=== PATIENT | female | born 1950 | race Caucasian/White ===

== ENCOUNTER 2020-03-16 15:00 | Inpatient (IN) | payer OTHER ==
[~2020-03-16] VITALS: Ht 152.4 cm; Wt 37.0 kg
--- NOTE | ~2020-03-16 | H ---
[facility] [place] [address] HISTORY AND PHYSICAL Name: JOE DEL ROSARIO Room #: 514-P ADM IN M.R.#: [id number] Admission: 03/16/20 Attend Phys: Gurpreet Padilla MD Discharge: Date of : 46 Report #: [id number] THIS REPORT FOR: cc: Jeannette Sandoval,Gurpreet Shoemaker MD ~ CC: Jeannette Padilla DATE OF SERVICE: 03/16/2020 HISTORY AND PHYSICAL AND POST-ADMISSION PHYSICIAN EVALUATION HISTORY OF PRESENT ILLNESS: The patient is a 69-year-old white female with a history of severe multi-joint rheumatoid arthritis, who had a left displaced femoral neck fracture approximately 3 weeks prior. She underwent right hip hemiarthroplasty at that time. She underwent some rehabilitation, was able to be discharged back to her assisted living facility. She apparently was crossing her legs. Denied any fall and ended up dislocating her hemiarthroplasty. She was readmitted to [facility] and underwent closed reduction. She has been placed in a right hip abductor brace. She has been admitted now to [facility] for acute in-hospital inpatient rehabilitation. PAST MEDICAL HISTORY: Includes multi-joint severe rheumatoid arthritis, history of fibromyalgia and osteoporosis. MEDICATIONS: Please see the full medication listing. She notes she has been on the Eliquis since her hip surgery. She is on chronic prednisone usage. They actually changed her over to aspirin 81 mg, which she is on now. SOCIAL HISTORY: Lives in assisted living [facility]. She notes that she was a premorbid walker ambulator. She needed assistance with bathing. She indicates she does not have a primary care physician. Diet is regular. REVIEW OF SYSTEMS: No complaints of chest pain, shortness of breath or abdominal discomfort. She has chronic arthritic complaints with her rheumatoid arthritis. PHYSICAL EXAMINATION: GENERAL: The patient is a small statured, thin 69-year-old female, somewhat frail in appearance, no obvious distress. She is alert, oriented. VITAL SIGNS: Vital are being obtained. HEENT: Appeared to be benign. NEUROLOGIC: Facies are symmetric. She knows the place, year, date, day of the week. CHEST: Sounded clear to auscultation. [address] [address] HISTORY AND PHYSICAL Name: JOE DEL ROSARIO Room #: 514-P [facility] IN M.R.#: [id number] Admission: 03/16/20 Attend Phys: Gurpreet Padilla MD Discharge: Date of : 46 Report #: [id number] CARDIOVASCULAR: Regular rate and rhythm. ABDOMEN: Bowel sounds positive, nontender. GENITOURINARY AND RECTAL: Deferred. EXTREMITIES: She has significant bilateral hand chronic arthritic changes with ulnar deviation and some decreased accounting manager. Strength is probably a grade 4-/5. In her lower extremities, she has the large abductor brace in place over that right hip and across her pelvis. There is no focal calf swelling. She has functional range of motion of both distal lower extremities. She does have some bluish discoloration of both feet, which she notes is chronic and happens when her feet get cold. She has excellent capillary refill and I felt I could feel her pulses, dorsalis pedis, posterior tibialis. No complaints of pain with strength of the distal lower extremities, probably a grade 4-/5. Left lower extremity strength is probably a grade 4-/5. Functionally, she has been needing assistance with basic transfers. ASSESSMENT: A 69-year-old white female with the following problems: 1. Right hip prosthesis displacement, status post closed reduction. 2. Right femur fracture, status post right hip hemiarthroplasty. 3. Severe premorbid rheumatoid arthritis. 4. Intractable pain. 5. Deep venous thrombosis prophylaxis. She is currently on aspirin and utilizing SCDs. 6. Vitamin D deficiency. 7. History of fibromyalgia. PLAN: The patient is admitted for acute in-hospital inpatient rehabilitation. From a postadmission physician evaluation perspective, there are no relevant changes since the preadmission screening. Please see the above review of prior and current medical and functional conditions and comorbidities. Please see the patient's previous and current functional status. As far as risk of complication, she does have the above noted medical comorbidities. Measurable functional goals would be for the patient to become modified independent with transfers, mobility and ADLs, so she can hopefully return back to her prior living situation. She does live in an assisted living facility and will likely need more assistance initially. She is allowed weightbearing as tolerated on that right lower extremity and will be continuing with the posterior hip precautions. She has the right abductor brace set to 60 degrees flexion, 15 degrees abduction. Prognosis is reasonably good with estimated length of stay probably at least 7-10 days. Potential barriers would include her multiple medical comorbidities and decreased functional status. The patient meets diagnostic criteria for an acute in-hospital inpatient rehabilitation stay. She meets the medical necessity criteria. She does have [address] [address] HISTORY AND PHYSICAL Name: JOE DEL ROSARIO Room #: 514-P ADM IN M.R.#: [id number] Admission: 03/16/20 Attend Phys: Gurpreet Padilla MD Discharge: Date of : 46 Report #: [id number] the tolerance for therapies and has appropriate discharge goals back to the home setting. By: [id number] 1731 Gurpreet Padilla MD /nt
--- NOTE | ~2020-03-16 | PLAN ---
[facility] [place] [address] REHAB UNIT PLAN OF CARE Name: JOE DEL ROSARIO Room #: 514-P ADM IN M.R.#: [id number] Admission: 03/16/20 Attend Phys: Gurpreet Padilla MD Discharge: Date of : 46 Report #: [id number] THIS REPORT FOR: //name// CC: Jeannette Padilla DATE OF SERVICE: 03/19/2020 PROGRESS NOTE AND OVERALL PLAN OF CARE SUBJECTIVE: [place] Nena del rosario is seen back today in followup. She is in no distress. Last recorded temperature is 98.2, pulse 74, respirations 20, and blood pressure 138/73. No calf swelling. She has the abductor triangle brace in place. She is working in therapies with transfers, mod assist. Gait min assist 20 feet with a front-wheeled walker. In occupational therapy, lower body dressing is max assist. Speech therapy is also involved, noting moderate cognitive deficits with severe memory deficits. ASSESSMENT: 1. Right hip prosthesis displacement, status post closed reduction. 2. Right femur fracture, status post right hip hemiarthroplasty. 3. Severe premorbid rheumatoid arthritis. 4. Intractable pain. 5. Deep venous thrombosis prophylaxis. She is on aspirin and SCDs as per transfer from [place]. 6. Vitamin D deficiency. 7. History of fibromyalgia. PLAN: The overall plan of care is based on the preadmission screen, post-admission physician evaluation and information garnered from therapy assessments. 1. Estimated length of stay is probably around 7-10 days, likely longer if warranted. 2. Medical prognosis is reasonably good. 3. Anticipated interventions include the interdisciplinary acute inpatient rehabilitation program. 4. Anticipated functional outcomes would be for the patient to become modified independent or at least to improve as far as basic mobility and ADLs to improve cognition overall, so she can hopefully return back to the home setting. 5. Discharge destination would be back to the home setting. She does live in an assisted living facility. 6. Expected therapy by discipline includes PT, OT and speech 1 hour per day [address] [address] REHAB UNIT PLAN OF CARE Name: MARTY DEL ROSARIOJAMESON DODSON Room #: 514-P [facility] IN M.R.#: [id number] Admission: 03/16/20 Attend Phys: Gurpreet Padilla MD Discharge: Date of : 46 Report #: [id number] each five days a week throughout the duration of the acute inpatient rehabilitation stay. By: [id number] 1740 Gurpreet Padilla MD /nt
[~2020-03-16 15:00] MED LIST: ACETAMINOPHEN500 M1 PO; ACYCLOVIR 800800 MG PO; BAYER CHEWABLE81 MG PO; BENADRYL25 MG PO; BIOFREEZE118 ML TOP; COLACE100 MG PO; DULCOLAX STOOL100 M1 PO; ELIQUIS2.5 MG PO; EMBREL; FAMOTIDINE 20 M20 MG PO; FLORANEX TABLE1 EACH PO; FLORASTOR250 MG PO; IBUPROFEN 800800 M1 PO; IRON325 PO; LEVAQUIN 750 M750 MG PO; METAMUCIL1 EAC1 PO; METHOTREXATE 22.5 M1 PO; MILK OF MA400 MG/5 M PO; MIRALAX17 GM PO; NAPROSYN500 M1 PO; NAPROXEN250 MG PO; OXYCODONE HCL10 MG PO; OXYCODONE HCL15 MG PO; PREDNISONE 5 MG5 M1 PO; SENEXON-S 50-81 EACH PO; TRAMADOL 50 MG50 MG PO; VITAMIN D21250 MC1 PO
[2020-03-16 16:20] VITALS: BP 139/79
--- NOTE | 2020-03-16 17:27 | NUR ---
PT ARRIVED AT 1615 FROM [facility]. VITALS STABLE. PT DENIES PAIN. ALERT AND ORIENTED*4 BUT FORGETFUL. ABD BRACE IN PLACE ON RIGHT HIP. HIP DRESSING DRY AND INTACT. TIJERINA IN INTACT AND PATENT, URINE IS LIGHT YELLOW AND CLEAR. PT EATING POORLY, ATE 50% OF HER DINNER. UP WITH 1 MOD ASSIST, PIVOT TRANSFER AND TOLERATED WELL. CYANOTIC FEET AND TOES (PT STATED THAT SHE GETS CYANOTIC WHEN COLD). Q1H VISUAL CHECKS. CALL LIGHT WITHIN REACH. FALL PRECAUTIONS IN PLACE
[2020-03-16 19:38] VITALS: BP 156/73
--- NOTE | 2020-03-17 03:33 | NUR ---
ASSUMED CARE AT APPROX 1900 EVENING 03/16. PT ALERT AND ORIENTED X4, PLEASANT AND COOPERATIVE. PT LYING IN BED WITH ABDUCTOR PILLOW IN BETWEEN LEGS. PT TOOK HS MEDS WITH WATER TOLERATING WELL. TIJERINA TO DD WITH YELLOW URINE TO BAG. PT APPEARS TO BE SLEEPING SOUNDLY WITH HOURLY ROUNDING. BED ALARM ON AND CALL LIGHT IN REACH. WILL CONTINUE TO MONITOR.
[2020-03-17 05:57] LABS: HEMATOCRIT 30.8 % (37.0-47.0); HEMOGLOBIN 9.8 gm/dL (12.0-15.0); MCH 25.6 pg (26.0-34.0); MCV 79.9 fL (80.0-100.0); RBC 3.85 mil/uL (4.20-5.00); RDW 25.4 % (10.5-14.5); WBC 6.4 thou/uL (4.0-11.0)
[2020-03-17 06:21] LABS: CALCIUM 9.5 mg/dL (8.5-10.1)
[2020-03-17 08:00] VITALS: BP 143/75
--- NOTE | 2020-03-17 11:26 | NUR ---
ASSUMED CARE AT 0700. PATIENT IS ALERT AND ORIENTED X4. PATIENT QUIROGA'S, LICENSED STAFF MFT ARE EQUAL. LUNGS ARE CLEAR. ABD IS SOFT WITH BSX.4 PATIENT HAS ABDUCTOR PILLOW IN PLACE WHEN IN BED, AND BRACE TO HER RIGHT HIP WHEN UP OR AMBULATING. UP IN THE RECLINER FOR MEALS. FALL AND SAFETY PROTOCOLS IN PLACE. C/O PAIN IN HER RIGHT HIP. MEDICATED WITH PRN PAIN MEDS. PATIENT CONTINUES TO PROGRESS SLOWLY TOWARDS D/C GOALS. P.T. WANTS LPN RN CALLED ON THURSDAY TO COME OUT AND ADJUST THE BRACE. WILL CONTINUE TO MONITER.
[2020-03-17 20:40] VITALS: BP 162/76
--- NOTE | 2020-03-18 01:34 | NUR ---
ASSUMED CARE AT APPROX 1900 EVENING 03/17. PT LYING IN BED ALERT AND ORIENTED X4, APPROPRIATE AND COOPERATIVE. ABDUCTOR PILLOW IN PLACE IN BED. PT SOMEWHAT RESTLESS C/O ITCHING AND PAIN. MEDS GIVEN FOR BOTH. PT TOOK MEDS WITH WATER TOLERATING WELL. TIJERINA TO DD WITH CLEAR, YELLOW URINE TO BAG. PT APPEARS TO BE SLEEPING SOUNDLY AT PRESENT. BED ALARM ON AND CALL LIGHT IN REACH. WILL CONTINUE TO MONITOR.
[2020-03-18 08:25] VITALS: BP 149/63
--- NOTE | 2020-03-18 16:57 | NUR ---
ASSUMED CARE AT 0700, PT A&O X 4 NO ACUTE CHANGES NOTED. VSS, O2 ON RA. PT DENIES ANY PAON OR DISCOMFORT, RLE IMMOBILIZED, APPARATUS IN PLACE. MEDS GIVEN PER ORDERS, DIDN'T EAT MUCH OF MEALS TODAY, STATED THAT SHE WASNT FEELING HUNGRY, REFUSED ENSURE SUPPLEMENT. TIJERINA IN PLACE DRAINING YELLOW URINE. NO BM TODAY.PT ON TORITO MIRALAX. PT RESTING IN BED, CALL LIGHT WITHIN REACH, WILL CONTINUE TO MONITOR PER POC.
[2020-03-18 19:25] VITALS: BP 138/73
--- NOTE | 2020-03-18 23:37 | NUR ---
PT ASSESSMENT COMPLETED AND VSS. MEDS GIVEN ORDERED AND WELL TOLERLATED. FALL PRECAUTIONS IN PLACE. ABDUCTOR PILLOW WORKING WELL. ASST WITH FREQUENT REPOSITION FOR COMFORT. TIJERINA DRAINING MODERATE AMOUNT OF YELLOW URINE. WILL CONTINUE TO MONITOR FREQUENTLY.
[2020-03-19 08:10] VITALS: BP 144/89
--- NOTE | 2020-03-19 13:16 | NUR ---
Nutrition: REC liberalize diet to regular due to inadequate intake.
--- NOTE | 2020-03-19 14:07 | NUR ---
chart review. cm visited with pt via phone call, she was able to make her needs know. intro to cm, dcp and team meeting. pat reported " live in resident care facility at [facility]. all on 1 level. no stairs or elevators. walker with seat but not sure if like the way i feel when sitting down on it, have call light. they give meals and do the laundry. casper help with showers. no home health in past. had rehab at [facility] before"/steffany. will cont following as needed for dc needs.
--- NOTE | 2020-03-19 19:26 | NUR ---
ASSUMED CARE OF PT AT 0700. PT IS A&OX4 AND VITAL SIGNS ARE STABLE. PT REPORTED PAIN, MANAGED WITH PO PAIN MEDICATIONS. PARTICIPATED IN SCHEDULED THERAPIES. TIJERINA CATHETER REMOVED. PT REPORTED BURING WITH URINATION, OBTAINED ORDER FOR UA, NO SAMPLE OBTAINED AT THIS TIME. LOW AIRLOSS MATTRESS ORDERED DUE TO RISK FOR SKIN BREAKDOWN. FALL PRECAUTIONS IN PLACE AND NURSING WILL CONTINUE TO MONITOR.
[2020-03-19 20:34] VITALS: BP 158/78
--- NOTE | 2020-03-20 01:44 | NUR ---
PT ASSESSMENT COMPLETED AND VSS. MEDS GIVEN ORDERED AND WELL TOLERATED. FALL PRECAUTIONS IN PLACE. ABDUCTOR PILLOW IN PLACE. URINE SENT TO THE LAB FOR TESTING - PENDING. INC OF LARGE AMOUNTS OF URINE. ROBB CARE PROVIDED. PRN PAIN AND SLEEP MEDICATION HELPFUL. ASST WITH REPOSITION FOR COMFORT. SLEEPING WELL.
[2020-03-20 02:29] LABS: URINE BILIRUBIN NEGATIVE (Negative); URINE BLOOD 3+ (Negative); URINE CLARITY CLEAR; URINE COLOR YELLOW; URINE GLUCOSE-RANDOM* NEGATIVE (Negative); URINE KETONES NEGATIVE (Negative); URINE PROTEIN (DIPSTICK) NEGATIVE (Negative); URINE UROBILINOGEN 0.2 E.U./dl (0.2-1.0)
[2020-03-20 02:30] LABS: URINE LEUKOCYTES-REFLEX 3+ (Negative); URINE NITRITE-REFLEX POSITIVE (Negative)
[2020-03-20 02:35] LABS: BACTERIA-REFLEX 1-9 Few /HPF (None Seen); CASTS None Seen /LPF (None Seen); CRYSTALS None Seen /LPF (None Seen); MUCUS 0-3 Light strn/LPF (None Seen); SQUAMOUS 0-3 Few /LPF (0-3); URINE RBC 3-10 Few /HPF (0-2); URINE WBC-REFLEX >25 Many /HPF (0-5); WBC CLUMPS Few (None Seen)
[2020-03-20 07:50] VITALS: BP 138/78
--- NOTE | 2020-03-20 13:09 | NUR ---
team meeting, recommendation: check and see how much assistance her home could provide for her at dc, rt brace for leg, and adl's ext. re team with anticpated 03/29 vs dcp option if [facility] meet her needs.
[2020-03-20 19:35] VITALS: BP 133/60
--- NOTE | 2020-03-20 20:11 | NUR ---
ASSUMED CARE OF PT AT 0700. PT IS A&OX4 AND VITAL SIGNS ARE STABLE. PT REPORTED PAIN TO RIGHT HIP AND WRIST, PAIN MANAGED WITH PO MEDICAITONS, XRAY ORDERED AND RESULTS DISCUSSED WITH PROVIDER. PT PARTICIPATED IN SCHEDULED THERAPIES. HEMORRHOIDS NOTED ON ASSESSMENT, ORDER FOR OINTMENT OBTAINED AND APPLILED PER ORDERS. PT REEDUCATED ABOUT HIP PRECAUTIONS AND ENCOURAGED TO MAINTAIN PRECAUTIONS. FALL PRECAUTIONS IN PLACE AND NURSING WILL CONTINUE TO MONITOR.
--- NOTE | 2020-03-21 03:53 | NUR ---
APPRECIATES TURN TO SIDE WITH PILLOWCASE BETWEEN HER AND HER ABDUCTOR PILLOW TO MINIMIZE ITCHING. TOLERATED MEDS WITH WATER WITH CIPRO BROKEN IN HALF DUE TO SIZE. APPRECIATES PREPARATION H TO BARELY BULGING HEMMOROIDS. INCONTINENT SO FAR THIS SHIFT
[2020-03-21 08:20] VITALS: BP 145/60
--- NOTE | 2020-03-21 10:06 | NUR ---
Dc c4 planner to fax referrals to [facility] for SNF stay.
--- NOTE | 2020-03-21 15:34 | NUR ---
FAXED REFERRAL TO [facility] SPOKE WITH WERNER IN ADM SHE RECEIVED REFERRAL AND WILL BE ABLE TO ACCEPT AT [place]. FAXED REFERRAL TO [facility] SPOKE WITH DAMARI IN ADM SHE RECEIVED REFERRAL AND WILL REVIEW. DP TO FOLLOW.
--- NOTE | 2020-03-21 16:32 | NUR ---
ASSUMED CARE OF PT AT 0700. PT IS A&OX4 AND VITAL SIGNS ARE STABLE. PT REPORTS PAIN, MANAGED WITH PO MEDICATIONS AND REST. BRACE IN PLACE WHEN OOB. SCHDULED VOIDING ATTEMPTED THIS SHIFT. HIP PRECAUTIONS REINFORCED. PT REPORTED SOME NAUSEA AND GASTRIC UPSET, MANAGED WTIH PO MEDICAITONS. MAG CITRATE ADMINISTERED FOR CONSTIPATION, NO RESULTS AT THIS TIME. FALL PRECAUTIONS IN PLACE. NURSING WILL CONTINUE TO MONITOR.
[2020-03-21 20:00] VITALS: BP 134/52
--- NOTE | 2020-03-22 03:41 | NUR ---
ASSUMED CARE OF PT AT 1900HRS. PT AOX4 BUT FORGETFUL. FALL PRECAUTION IN PLACE. ABDUCTOR PILLOW IN PLACE AND HIP PRECAUTION MAINTAINED. ABX TREATMENT CONTINUED. PT TOOK PILLS WHOLE. PT WAS ABLE TO GET COMFORTABLE AND SLEEP PART OF THE SHIFT. VSS AND NO S/S OF ACUTE DISTRESS. WILL CNTINUE TO MONITOR. .
[2020-03-22 07:45] VITALS: BP 136/71
--- NOTE | 2020-03-22 11:00 | NUR ---
cm notified that [facility] and [facility] ([place]) both able to accept for snf if needed. cm left message with pt daughter sreedhar. will cont following as needed for dc needs.
--- NOTE | 2020-03-22 14:55 | NUR ---
ASSUMED CARES AT 0700. PT AWAKE, ALERT AND ORIENTED*4 BUT FORGETFUL. DENIES PAIN. VITALS STABLE. HIP PRECAUTIONS MAINTAINED ( ABDUCTOR PILLOW IN PLACE WHEN IN BED, BRACE ON WHEN AWAKE). PREP-H APPLIED TO HEMORRHOOIDS. ABDOMEN SOFT AND FLAT WITH ACTIVE BS, DUCOLAX PILLS AND MIRALAX ADMINISTERED, LAST REPORTED BM 03/20. REPOSITIONED Q2H. UP WITH 1 MIN ASSIST, GB AND WALKER AND TOLERATED WELL. Q1H VISUAL CHECKS. CALL LIGHT WITHIN REACH. FALL PRECAUTIONS IN PLACE
[2020-03-22 19:29] VITALS: BP 126/54
--- NOTE | 2020-03-23 03:29 | NUR ---
INCONTINENT OF URINE AND SMALL AMOUNT DARK STOOL, FEELS IF SHE HAS NO CONTROL OF EITHER RIGHT NOW. TURNED TO SIDE WITH ABDUCTOR PILLOW IN PLACE, FOLLOWING AND DISCUSSING HIP PRECAUTIONS, SPECIFICALLY NOT CROSSING LEGS. LOW AIR LOSS THERAPY PUMP ON.
[2020-03-23 08:00] VITALS: BP 142/68
--- NOTE | 2020-03-23 10:48 | NUR ---
cm called daughter sreedhar [phone], passed on that both facility has accepted pt for snf at dc. " well that is good, 1st will be [facility] and 2nd [facility]. we would like her to go to [facility] will cont following as needed for dc needs.
--- NOTE | 2020-03-23 10:55 | NUR ---
NOTIFIED STEFFI IN ADM AT [facility] THAT PT'S FAMILY CHOSE [facility] FOR SKILLED AT DISCHARGE. DP TO FOLLOW.
--- NOTE | 2020-03-23 14:26 | NUR ---
ASSUMED CARES AT 0700. PT AWAKE, ALERT AND ORIENTED*4 BUT FORGETFUL. C/O GENERALIZED PAIN, ACETAMINOPHEN ADMINISTERED. VITALS STABLE. ABDOMEN SOFT AND FLAT WITH HYPERACTIVE BS. *L LARGE LOOSE INCONTINENT BM THIS AM, HELD LAXATIVES AND STOOL SOFTENORS. PT EATING POORLY, 10% OR LESS PER MEAL, ENCOURAGE AND ASSIST IN ORDERING MEALS. BRACE IN PLACE WITH ACTIVITY. ABDUCTOR PILLOW IN PLACE WHEN IN BED. UP WITH 1 MOD ASSIST, GB AND WALKER AND TOLERATED WELL. Q1H VISUAL CHECKS. CALL LIGHT WITHIN REACH. FALL PRECAUTIONS IN PLACE
[2020-03-23 20:25] VITALS: BP 114/58
--- NOTE | 2020-03-24 01:56 | NUR ---
TO SIDE WITH ABDUCTOR PILLOW IN PLACE, LOW AIR LOSS PUMP THERAPY CONTINUES. USING BEDPAN FOR VOIDS OF 250 AND GREATER, DECLINED LAXATIVES LAST EVENING SINCE SHE HAD HAD A LARGE BM YESTERDAY. PREPARATION H TO RECTUM AFTER USING BEDPAN. PO INTAKE ENCOURAGED
[2020-03-24 05:37] LABS: ABSOLUTE NEUTROPHILS 4.9 thou/uL (1.4-8.2); BASOPHILS 0.9 % (0.0-2.0); EOSINOPHILS 0.6 % (0.0-3.0); HEMATOCRIT 32.5 % (37.0-47.0); HEMOGLOBIN 10.5 gm/dL (12.0-15.0); LYMPHOCYTES 23.7 % (24.0-44.0); MCHC 32.2 g/dL (28.0-37.0); MCV 80.8 fL (80.0-100.0); MONOCYTES 8.4 % (1.0-8.0); PLATELET COUNT 427 thou/uL (150-400); POLYS 66.4 % (36.0-66.0); RBC 4.02 mil/uL (4.20-5.00); RDW 25.7 % (10.5-14.5); WBC 7.3 thou/uL (4.0-11.0)
[2020-03-24 05:43] LABS: CALCIUM 9.3 mg/dL (8.5-10.1); MAGNESIUM 1.9 mg/dL (1.8-2.4); POTASSIUM 3.7 mmol/L (3.5-5.1)
[2020-03-24 08:30] VITALS: BP 142/64
--- NOTE | 2020-03-24 14:17 | NUR ---
ASSUMED CARES AT 0700. PT AWAKE, ALERT AND ORIENTED*4. C/O GENERALISED PAIN, PAIN MEDICATION ADMINISTERED NEEDED. VITALS REMAIN STABLE. HIP PRECAUTIONS MAINTAINED. PT EATING POORLY, EATING 20-30% OF HER MEALS, ASSISTANCE PROVIDED WITH ORDERING MEALS. PT PARTICIPATED IN THERAPY. UP WITH 1 MOD ASSIST, GB AND WALKER. FREQ. VISUAL CHECKS. CALL LIGHT WITHIN REACH. FALL PRECAUTIONS IN PLACE
[2020-03-24 19:16] VITALS: BP 131/55
--- NOTE | 2020-03-25 01:53 | NUR ---
assumed care at approx 1900 evening 03/24. pt lying in bed with head of bed elevated at change of shift. pt alert and oriented x4, appropriate and cooperative. pt with abductor pillow in place in bed. pt reminded to continue to try and keep it in place. pt took hs meds with water tolerating well. pt voiding per bedpan.pt appears to be sleeping soundly with hourly rounding checks. bed alarm on and call light in reach. will continue to monitor.
[2020-03-25 08:15] VITALS: BP 130/62
--- NOTE | 2020-03-25 10:59 | NUR ---
ASSUMED CARE AROUND 0700, PT A&O X 4, NO ACUTE DISTRESS NOTED. VSS, O2 ON RA. PT DENIES ANY PAIN OR DISCOMFORT DURING SHIFT. MEDS GIVEN PER ORDERS, TOLERATED WELL. ABDUCTION PILLOW IN PLACE, HIP PRECAUTIONS CONTINUED. TURNED Q2H. CONTINENT OF B&B, LAST BM 03/23/20, ON TORITO STOOL SOFTENERS. PT RESTING IN BED, CALL LIGHT WITHIN REACH, WILL CONTINUE TO MONITOR PER POC.
[2020-03-25 19:37] VITALS: BP 128/68
--- NOTE | 2020-03-26 03:42 | NUR ---
assumed care at approx 1900 evening 03/25. pt lying in bed at change of shift sleeping. pt slept soundly and hs meds held as pt remained drowsy and sleeping. pt assisted with turning and repositioning waking up slightly during turning. pt voided per bedpan. bed alarm on and call light in reach. will continue to monitor.
[2020-03-26 08:01] VITALS: BP 127/79
--- NOTE | 2020-03-26 13:32 | NUR ---
Nutrition: PO averaging 35% of meals past 4 days with possible severe weight loss over admit. Weights flucutating. RD starting calorie count. RECommend: Order daily weights and consider appetite stimulant.
--- NOTE | 2020-03-26 16:39 | NUR ---
ASSUMED CARE OF PT AT 0700. PT IS A&OX3, FORGETFUL. VITAL SIGNS ARE STABLE. PT REPORTS PAIN IN RIGHT HIP, MANAGED WITH PO MEDICAITONS. TURNED OR REPOSITIONED Q2H, BARRIER CREAM APPLIED NEEDED. HIP PRECAUTIONS IN PLACE. MANAGER ASSURANCE ON UNIT TO ADJUST BRACE. FALL PRECAUTIONS IN PLACE AND NURSING WILL CONTINUE TO MONITOR.
[2020-03-26 20:00] VITALS: BP 131/60
--- NOTE | 2020-03-27 03:26 | NUR ---
ASSUMED CARE AROUND 1900, PT A&0 X 4, NO ACUTE CHANGES OVERNIGHT. VSS, O2 ON RA. PT DENIED ANY PAIN OR DISCOMFORT DURING SHIFT. MEDS GIVEN PER ORDERS, PT REFUSED MIRALAX TONIGHT, EDUCATED PT ON THE IMPORTANCE OF TAKING LAXATIVES/STOOL SOFTNERS DAILY IT AIDS IN PREVENTING CONSTIPATION AND THAT SHE HAS NOT HAD A BM SINCE 03/23/20. PT CONTINUED TO REFUSE AND STATED THAT SHE IS NOT CONSTIPATED AND DOES NOT HAVE DAILY BM'S. PT ALSO STATED THAT THE LAST TIME SHE TOOK MIRALAX SHE HAD SEVERAL BM'S TO THE POINT THAT SHE HAD STOMACH CRAMPS AND SORENESS TO HER RECTUM. EXPLAINED TO PT THAT GOING 3 DAYS WITHOUT A BM IS NOT HEALTHY, AND THAT WHEN THE MIRALAX IS NOT TAKEN DAILY, SHE CAN GET CONSTIPATED WHICH LEADS TO BOWEL DISCOMFORT N/V ETC. PT CONTINUED TO STATE THAT SHE SPEAR NOT NEED THE MIRALAX AND REFUSED TO TAKE IT, AND SHE WILL DISCUSS IT WITH HER PROVIDER IN THE AM. ABDUCTOR PILLOW IN PLACE, HIP PRECAUTIONS CONTINUED, PT TURNED Q2H AND HEELS FLOATED. PT SLEPT SOUNDLY THROUGHOUT SHIFT, CALL LIGHT WITHIN REACH, WILL CONTINUE TO MONITOR PER POC.
[2020-03-27 07:40] VITALS: BP 132/80
--- NOTE | 2020-03-27 11:10 | NUR ---
vendor form and snf list provided to pt and her daughter, given to bedside nurse to place on pt chart.
--- NOTE | 2020-03-27 13:16 | NUR ---
Nutrition: RD completed 24 hr calorie count and pt consumed 990 kcals and 46 gm protein meeting 84% kcal needs, 90% protein needs. Continues to c/o no appetite however met majority of needs this day. Have assisted with meal ordering and food preferences which has likely increased intake. Weight loss a concern and pt unable to take any oral supplements-dislikes all varieties. REC daily weights and consideration of appetite stimulant.
[2020-03-27 19:34] VITALS: BP 150/81
--- NOTE | 2020-03-27 21:04 | NUR ---
ASSUME CARE OF PT AT 0700. PT IS A&OX4 AND VITAL SIGNS ARE STABLE. PT REPORTS PAIN MANAGED IN AM BY PAIN MEDICAITONS AND PT PARTICIPATED IN SCHEDULED THERAPIES. AT APPROXIMATELY 1500 PT REPORTED INCREASED PAIN, PO MEDICATIONS GIVEN PER ORDERS, PT SLEPT FOR APPROXIMATELY 1 HOUR BUT AWOKE REPORTING CONTINUED PAIN THAT "HURT WHEN BREATHING". STAT XRAY ORDERED AND RESULTS INDICATE DISLOCATION, CONSULTED ORTHO, ORDERS TO DISCHARGE TO MED/SURG, SURGERY IN AM, NIGHT NURSE REPORTS NOTIFYING FAMILY.
--- NOTE | 2020-03-27 22:32 | NUR ---
PT C/O SEVERE PAIN IN RIGHT HIP AT START OF SHIFT. RIGHT HIP XRAY RESULTS PENDING. OXYCODONE GIVEN ORDERED. PT CALLING OUT FOR PAIN MEDS ABOUT EVERY 15 MINUTES. XRAY RESULTS NOTED LATER TO SHOW DISLOCATION OF RIGHT HIP. ROLANDA ALONSO NOTIFIED WITH ORDERS RECEIVED. TYLENOL AND LIDODERM PATCH ADMINISTERED ORDERED. DR RONQUILLO NOTIFIED WITH ORDER RECEIVED FOR CONSENT FOR CLOSED REDUCTION OF RIGHT HIP. PT TO BE TRANSFERRED TO [facility]. REPORT CALLED TO [facility] ON . SPOKE WITH RICHARD PT'S DAUGHTER TWICE ABOUT SITUATION. NOEMY IN TO SEE PT AT 2150. PT DISCHARGED TO ROOM 436 AT 2155 VIA BED. PERSONAL BELONGINGS SENT WITH PT.
--- NOTE | 2020-03-28 10:56 | NUR ---
Pt dc'd back to acute care for surgery, closed revision of hip. dc plan is to SNF at [facility] ([place]
== END 2020-03-27 21:55 | DRG 559 ==
PROVIDERS: Nurse Practitioner; Nurse Practitioner Family; ADMIT Physical Medicine & Rehabilitation
DX: T84.020A Dislocation of internal right hip prosthesis, initial encounter (principal); S72.91XA Unspecified fracture of right femur, initial encounter for closed fracture; N39.0 Urinary tract infection, site not specified; E44.0 Moderate protein-calorie malnutrition; Z68.1 Body mass index [BMI] 19.9 or less, adult; M06.9 Rheumatoid arthritis, unspecified; E55.9 Vitamin D deficiency, unspecified; M79.7 Fibromyalgia; R53.81 Other malaise; I10 Essential (primary) hypertension; W19.XXXA Unspecified fall, initial encounter; D64.9 Anemia, unspecified; B96.20 Unspecified Escherichia coli [E. coli] as the cause of diseases classified elsewhere; Z79.82 Long term (current) use of aspirin
CPT/HCPCS: 10112

== ENCOUNTER 2020-03-27 22:15 | Inpatient (IN) | payer OTHER ==
[~2020-03-27] VITALS: Ht 152.4 cm; Wt 43.5 kg
[2020-03-27 22:05] VITALS: BP 117/61
--- NOTE | 2020-03-28 02:19 | NUR ---
PT TO UNIT AROUND 2200. ORIENTED TO UNIT, STAFF AND USE OF CALL LIGHT. ADMISSION HX & ASSESSMENT COMPLETED. 20G IV STARTED IN R AC. PAIN BEING MANAGED WITH PO MEDS UNTIL MIDNIGHT WHEN PT BECAME NPO FOR SURGERY. PT IS A&OX4, BUT FORGETFUL AT TIMES. ON BEDREST WITH FEMALE CATHETER IN PLACE. DISCUSSED WITH PUMP ASSEMBLER IF PT NEEDS A COVID SWAB AND IT WAS DECIDED THAT ONE WILL BE DONE IN THE AM AND SENT TO LAB. PT CURRENTLY RESTING IN BED WITH EYES CLOSED.
[2020-03-28 05:42] LABS: HEMATOCRIT 32.3 % (37.0-47.0); HEMOGLOBIN 10.4 gm/dL (12.0-15.0); MCH 26.3 pg (26.0-34.0); MCHC 32.3 g/dL (28.0-37.0); MCV 81.4 fL (80.0-100.0); RBC 3.97 mil/uL (4.20-5.00); RDW 25.6 % (10.5-14.5); WBC 8.6 thou/uL (4.0-11.0)
[2020-03-28 05:59] LABS: CALCIUM 9.5 mg/dL (8.5-10.1)
[2020-03-28 06:05] VITALS: BP 113/75
[2020-03-28 06:14] LABS: PROTIME 10.3 Seconds (9.3-11.4)
[2020-03-28 10:35] VITALS: BP 129/63
--- NOTE | 2020-03-28 11:14 | O ---
[facility] [place] [address] OPERATIVE REPORT Name: JOE DEL ROSARIO Room #: 436-P ADM IN M.R.#: [id number] Admission: 03/27/20 Attend Phys: North Zhang MD Discharge: Date of : 46 Report #: [id number] THIS REPORT FOR: cc: Jeannette Sandoval,Dean Lo MD ~ CC: Jeannette Zhang DATE OF SERVICE: 03/28/2020 SERVICE: Orthopedics. FACILITY: [facility]. SURGEON: Dean Crocker MD RN EMERGENCY: Soheila Romero. PREOPERATIVE DIAGNOSIS: Dislocated right hip hemiarthroplasty, status post hemiarthroplasty for femoral neck fracture at other facility. POSTOPERATIVE DIAGNOSIS: Dislocated right hip hemiarthroplasty, status post hemiarthroplasty for femoral neck fracture at other facility. PROCEDURE: Closed reduction right dislocated hip hemiarthroplasty. COMPLICATIONS: None. DRAINS: None. SPECIMENS: None. FINDINGS: 1. Successful reduction. 2. Stable to flexion, posterior loading, internal rotation, adduction, abduction under fluoroscopy. HISTORY AND INDICATIONS: The patient is a 69-year-old female who fell earlier this spring and sustained a femoral neck fracture, which was displaced. She had hemiarthroplasty and had initial uneventful recovery. This was done [facility]. She went home and then dislocated her hemiarthroplasty and was admitted back to [facility] and underwent closed reduction and then was transferred to the rehab unit at [facility] where she was found to have a dislocated hemiarthroplasty last night and was transferred down to the active inpatient [facility] and was indicated for closed reduction. Risks, benefits, [facility] [address] [place] [address] OPERATIVE REPORT Name: JOE DEL ROSARIO Room #: 436-P ADM IN M.R.#: [id number] Admission: 03/27/20 Attend Phys: North Zhang MD Discharge: Date of : 46 Report #: [id number] alternatives, and indication of surgery discussed with her and her [id number]. They gave full informed consent and wished to proceed. Risks include but not limited to recurrent instability, pain, injury to nerves or blood vessels, need for further surgery including revision as well as complications related to anesthesia. PROCEDURE IN DETAIL: After right lower extremity was correctly identified as the operative extremity, the patient was taken to the operating room where general anesthesia with LMA was induced without complication. She was padded appropriately. A time-out procedure was performed. Under C-arm fluoroscopy, longitudinal traction was applied to the right lower extremity creating appropriate length and then internal rotation moment was applied with the hip in extension and the hip was felt to reduce. It was symmetric in terms of leg length. The x-ray confirmed reduction. I then took the hip through a range of motion through abduction, external rotation, hip flexion to 90 degrees, posterior loading and a position of impingement too and there were no signs of instability. The leg was then placed back on the table. The abduction pillow was placed. She was awakened from anesthesia and taken to recovery room in stable condition. The wound was clean. There was no sign of infection based on current assessment. <ELECTRONICALLY SIGNED> By: Dean Crocker MD 03/28/20 1114 [id number] Dean Crocker MD /nt
--- NOTE | 2020-03-28 11:18 | NUR ---
FAXED CLINICAL UPDATE TO [facility] RECEIVED CONFIRMATION AND LEFT VOICEMAIL FOR YUSUF IN ADM THAT PT IS NOT ON REHAB AND HAD SURGERY WILL F/U WITH DC DATE.
--- NOTE | 2020-03-28 11:48 | NUR ---
Case opened to follow for dc planning. Pt has been rehab on [facility] with plan for dc to snf at [facility] tomorrow. Pt readmitted to acute care for closed revision of hip fx which she had this morning. DC c4 planner to updated the SNF and therapy to reeval. Case discussed with the care team and the liason. Recommendation is for dc to SNF at [facility] in 1-2 days. Will follow.
--- NOTE | 2020-03-28 11:53 | NUR ---
Case openned to follow for dc planning. Pt has been rehabing on [facility] for the past week and a half with plans to dc to SNF at [facility] tomorrow. Due to hip pain, pt was transfered back to acute care for surgery. Pt had a closed revision of her hip d/t dislocation. DC material planner to fax clinical update to the SNF and confirm bed for tomorrow or Thursday. DC plan discussed with Hero merlos. Plan remains to go to SNF at [facility] in 1- 2days. Covid screening form and 124c ready to be sent with the pt.
[2020-03-28 13:20] LABS: HEMATOCRIT 33.4 % (37.0-47.0); HEMOGLOBIN 11.1 gm/dL (12.0-15.0); MCH 26.9 pg (26.0-34.0); MCHC 33.3 g/dL (28.0-37.0); MCV 80.8 fL (80.0-100.0); PLATELET COUNT 401 thou/uL (150-400); RBC 4.13 mil/uL (4.20-5.00); RDW 25.7 % (10.5-14.5); WBC 7.5 thou/uL (4.0-11.0)
[2020-03-28 13:59] LABS: ABSOLUTE NEUTROPHILS 5.9 thou/uL (1.4-8.2); ANISOCYTOSIS 1+; PLATELET ESTIMATE NORMAL
--- NOTE | 2020-03-28 15:00 | NUR ---
FAXED COVID SCREENING FORM AND DA-124 TO [facility] RECEIVED CONFIRMATION AND LEFT MSG WITH ADM.
[2020-03-28 16:05] VITALS: BP 122/60
[2020-03-28 19:15] VITALS: BP 115/50
--- NOTE | 2020-03-28 19:35 | NUR ---
VSS-AFEBRILE. LUNGS CLEAR-ROOM AIR. CLOSED REDUCTION OF RIGHT HIP THIS SHIFT, REPORTS THAT PAIN IS MUCH MORE TOLERABLE. PAIN WELL CONTROLLED WITH IV FENTANYL. GOOD APPETITE WITH DINNER THIS SHIFT, NO REPORTED N/V. CALLS APPROPRIATELY FOR ANY NEEDED ASSISTANCE.
--- NOTE | 2020-03-29 03:28 | NUR ---
PT AOX4. PT DENIES PAIN AND SOB. ABDUCTOR PILLOW REMAINS IN PLACE WHILE PT IN BED. FREQUENT REPOSITIONING ENCOURAGED. PT TOLERATING PO INTAKE OF FLUIDS AND REGULAR DIET WITH SUPPLEMENT. PT ROOM REMAINS NEAR NURSES STATION. ENCOURAGED PT TO NOTIFY STAFF FOR ALL NEEDS. CALL LIGHT WITHIN REACH, BED ALARM ON, BED IN LOWEST POSITION. WILL CONTINUE TO MONITOR.
[2020-03-29 03:30] VITALS: BP 130/62
[2020-03-29 06:05] VITALS: BP 145/56
[2020-03-29 08:16] VITALS: BP 144/82
[2020-03-29 08:55] VITALS: BP 144/82
--- NOTE | 2020-03-29 11:31 | NUR ---
discussed during los, per MD lamar today to skilled rehab at [facility] ([email or web address]), plan for pt to return to her [facility] facility after skilled rehab. chart copy to be requested and bedside nurse to call report to [phone]. pt will need to transport via stretcher van rt hip precaution.
[2020-03-29] MEDS ORDERED: IRON325 PO (14:18)
[2020-03-29] MEDS ORDERED: ENOXAPARIN40 MG/0.1 SUBQ (14:18)
[2020-03-29] MEDS ORDERED: FELODIPINE 5 MG5 M1 PO (14:18)
[2020-03-29] MEDS ORDERED: NORCO 5-325 TA1 EAC1 PO (14:18)
[2020-03-29] MEDS ORDERED: MELATONIN5 M1 PO (14:18)
--- NOTE | 2020-03-29 15:01 | NUR ---
PT DISCHARGING TODAY TO [facility] FAXED DC ORDERS/SUMMMARY TO FACILITY SPOKE LAY GOLDBERG IN ADM SHE RECEIVED ORDERS AND ARRANGED TRANSPORT BY STRETCHER VAN FOR 1545 TODAY. NOTIFIED PT'S DTR (RICHARD) OF DC AND TIME OF TRANSPORT. UNIT NOTIFIED AND CHART COPY PER US. RN TO CALL REPORT TO [phone].
[2020-04-04] MEDS ORDERED: GENTLE LAXATIVE5 M1 PO (12:39)
[2020-04-04] MEDS ORDERED: BENADRYL25 MG PO (12:40)
[2020-04-04] MEDS ORDERED: MYLANTA MAXIMU355 ML PO (12:41)
[2020-04-04] MEDS ORDERED: PROMETHAZINE PO (12:42)
[2020-04-04] MEDS ORDERED: ONDANSETRON HCL4 M2 PO (12:43)
== END 2020-03-29 16:03 | DRG 560 ==
LOC: 4S 22:15
PROVIDERS: Nurse Practitioner Family; Orthopaedic Surgery Sports Medicine; ADMIT Internal Medicine
PROC: 0QS6XZZ Reposition Right Upper Femur, External Approach (ICD-10-PCS; principal; 2020-03-28)
DX: T84.020A Dislocation of internal right hip prosthesis, initial encounter (principal); E44.0 Moderate protein-calorie malnutrition; Z68.1 Body mass index [BMI] 19.9 or less, adult; M97.01XD Periprosthetic fracture around internal prosthetic right hip joint, subsequent encounter; D64.9 Anemia, unspecified; S72.001D Fracture of unspecified part of neck of right femur, subsequent encounter for closed fracture with routine healing; M06.9 Rheumatoid arthritis, unspecified; M81.0 Age-related osteoporosis without current pathological fracture; K21.9 Gastro-esophageal reflux disease without esophagitis; M79.7 Fibromyalgia; E55.9 Vitamin D deficiency, unspecified; Z79.82 Long term (current) use of aspirin; Z79.899 Other long term (current) drug therapy
CPT/HCPCS: 10102; 50010; 50101; 62110; 62900; 70005